=== PATIENT | male | born 1985 | race Caucasian/White ===

== ENCOUNTER 2024-12-12 06:50 | Outpatient (REF) | payer BC, SELFPAY ==
[2024-12-12 07:01] LABS: MANUAL DIFF FLAG NO
[2024-12-12 07:42] LABS: Basophils Percent Auto 0.6 % (0-2); Eosinophils Absolute Auto 0.1 X10*3/uL (0.0-0.4); Eosinophils Percent Auto 0.8 % (0-4); Hematocrit 44.6 % (42.0-52.0); Hemoglobin 15.2 g/dl (14.0-18.0); Imm Gran Abs Auto 0.02 X10*3/uL (0.00-0.03); Imm Gran Pct Auto 0.3 % (0.0-0.4); Lymphocytes Absolute Auto 2.2 X10*3/uL (1.2-4.9); Lymphocytes Percent Auto 33.6 % (20-40); Mean Corpuscular HGB Conc 34.1 g/dl (31.0-36.0); Mean Corpuscular Hemoglobin 30.3 pg (27.0-33.0); Mean Corpuscular Volume 88.8 fL (80.0-98.0); Mean Platelet Volume 9.9 fL (9.4-12.4); Monocytes Absolute Auto 0.7 X10*3/uL (0.1-1.2); Monocytes Percent Auto 10.7 % (2-11); Neutrophils Absolute Auto 3.5 x10*3/uL (2.0-8.3); Platelet Count 228 X10*3/uL (160-400); Red Blood Count 5.02 X10*6/uL (4.60-5.80); Red Cell Distribution Width 11.7 % (11.0-16.0); White Blood Count 6.5 X10*3/uL (4.8-10.8)
[2024-12-12 08:26] LABS: Alanine Aminotransferase 29 U/L (0-40); Albumin Level 4.5 g/dL (3.5-5.0); Alkaline Phosphatase 52 U/L (39-117); Anion Gap 10 (12-20); Aspartate Amino Transferase 25 U/L (5-37); Bilirubin Total 0.6 mg/dL (0.0-1.0); Blood Urea Nitrogen 20 mg/dL (9-16); Calcium 9.3 mg/dL (8.4-10.2); Carbon Dioxide 27 mmol/L (22-29); Chloride 109 mmol/L (96-108); Cholesterol 229 mg/dL (<200); Estimated Glomerular Filt Rate > 60; Glucose Fasting 79 mg/dL (60-99); HDL Cholesterol 55 mg/dL (>40); LDL Cholesterol Calculated 160 mg/dL (<100); Potassium 3.6 mmol/L (3.3-5.1); Sodium 142 mmol/L (135-145); Total Protein 6.9 g/dL (6.5-8.0); Triglycerides 74 mg/dL (<150)
== END 2024-12-12 06:51 | disposition home or self-care (01) ==
LOC: HO.LAB 06:50
PROVIDERS: Visit Provider Internal Medicine
DX: Z00.00 Encounter for general adult medical examination without abnormal findings (principal)
CPT/HCPCS: 36415; 80053; 80061; 85025

== ENCOUNTER 2024-12-29 13:15 | Outpatient (AMB) | payer OTHER, SELFPAY ==
--- NOTE | 2024-12-29 13:26 | MHC.PC.OV ---
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 Father No problems noted. Social History Housing: Condominium Patient Tobacco Use Status: Never used Tobacco e-Cigarette/Vaping Use: Never Used service: No Current occupational status: employed Cognitive needs: No Hearing needs: No Vision needs: No Questionnaire PHQ-9 Over the last 2 weeks, how often have you been bothered by any of the following problems? 1. Little interest or pleasure in doing things: not at all 2. Feeling down, depressed, or hopeless: not at all 3. Trouble falling or staying asleep, or sleeping too much: not at all 4. Feeling tired or having little energy: not at all 5. Poor appetite or overeating: not at all 6. Feeling bad about yourself - or that you are a failure or have let yourself or your family down: not at all 7. Trouble concentrating on things, such as reading the newspaper or watching television: not at all 8. Moving or speaking so slowly that other people could have noticed. Or the opposite - being so fidgety or restless that you have been moving around a lot more than usual: not at all 9. Thoughts that you would be better off or of hurting yourself in some way: not at all Total score: 0 Source: Developed by Meliton Winstonet B.W. Toni, Iain Ren and colleagues, with an educational asad from [employer]. Thrive Questionnaire Date Thrive assessed: 12/29/24 I am a: Patient Within the past 12 months, did the food you bought not last and you didn't have the money to get more?: Never true Within the past 12 months, did you worry whether your food would run out before you got money to buy more?: Never true Do you have trouble paying for medicines?: No Do you have trouble getting transportation to medical appointments?: No Do you have trouble paying your heating and electricity bill?: No Do you have trouble taking care of your child, family member or friend?: No Do you have trouble with day-to-day activities such as bathing, preparing meals, shopping, managing finances, etc.?: No Are you currently unemployed and looking for a job?: No Are you interested in more education?: No THRIVE Score: 0 AUDIT C Alcohol Use Questionnaire (AUDIT-C) 1. How often do you have a drink containing alcohol?: Monthly or less 2. How many drinks containing alcohol do you have on a typical day when you are drinking?: 1 or 2 3. How often do you have six or more drinks on one occasion?: Less than monthly Total Score: 2 TOAN-7 AMB Questionnaire TOAN-7 Date TOAN - 7 assessed: 12/29/24 Feeling nervous, anxious, or on edge: 0 = Not at all Not being able to stop or control worryin = Not at all Worrying too much about different things: 0 = Not at all Trouble relaxin = Not at all Being so restless that it is hard to sit still: 0 = Not at all Becoming easily annoyed or irritable: 0 = Not at all Feeling afraid as if something awful might happen: 0 = Not at all Total TOAN-7 score (0-4 normal; 5-9 mild; 10-14 moderate; 15-21 severe): 0 Source: Developed by Drs. Hector Brewster, Rosanna Muñoz, Iain Ren and colleagues, with an educational asad from [employer]. Physical exam (Primary Care) Vital Signs: Last Vital Signs Temp 97.5 F 12/29/24 13:29 Pulse 74 12/29/24 13:29 BP 126/80 12/29/24 13:29 Pulse Ox 99 12/29/24 13:29 Oxygen Delivery Method Room Air 12/29/24 13:29 BMI result Body Mass Index 28.4 Tobacco/Smoking Status: Tobacco use Status Tobacco use date assessed 12/29/24 12/29/24 13:28 Patient Tobacco Use Status Never used Tobacco 12/29/24 13:28 e-Cigarette/Vaping Use Never Used 12/29/24 13:28 PHQ-9: PHQ-9 Score PHQ-9: Total score 0 12/29/24 13:35 Thrive Assessment: Date of Thrive Assessment Date Thrive assessed 12/29/24 12/29/24 13:28 Coding Level of Care Code New Pt Level 4 (96893) Complex EM visit Add On G2211 Diagnoses Hyperlipidemia E78.5 Assessment & Plan Assessment & Plan (1) Hyperlipidemia: Code(s): E78.5 - Hyperlipidemia, unspecified Category: Medical Plan: Statins started. Counselling on the importance of diet and exercise done. Plan History of Present Illness The patient is a 39-year-old male presenting for a routine physical examination and management of hypercholesterolemia. Recently, routine bloodwork revealed an elevated cholesterol level of 160 mg/dL, which the patient was previously unaware of. He denies any accompanying symptoms like chest pain or dyspnea. The issue was identified as part of preparatory health checks ahead of his upcoming wedding. Notable in his family history, his father suffered a myocardial infarction, and on his paternal side, he has two relatives who had aneurysms. The patient denies any use of amphetamines, which his relatives used and were connected to their aneurysms. His blood pressure measurements have been normal, and he does not exhibit signs requiring immediate aneurysm screening. 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 - Exercise: Plays soccer once a week. - Vision: Reports occasional need to squint when reading since law school. Review of Systems - Cardiovascular: Denies chest pain or dyspnea. - Neurological: Denies frequent headaches or halos around vision. - Respiratory: Denies shortness of breath. Physical Exam General: Cooperative and healthy appearing Nutritional Appearance: Well nourished Orientation/consciousness: Patient oriented x3 Limitations: No limitations Head: Normal to inspection General: Appearance normal, both eyes and all related structures Neck: Normal visual inspection Chest: Normal palpation of entire chest wall Respiratory: Normal respiratory effort Neurology: Patient oriented x3 Results - Labs: Elevated total cholesterol at 160 mg/dL. Plan The patient will initiate statin therapy to manage hypercholesterolemia, given the elevated cholesterol levels and the significant family history of cardiovascular disease. This intervention is aimed at reducing his risk for future heart disease and stroke. Comprehensive guidance on the importance of concurrently adopting dietary and physical activity modifications was provided, although the medication is expected to have the most significant impact on lowering cholesterol levels. The potential side effects, such as muscle cramps and liver enzyme alterations, were reviewed, and the necessity of regular six-month monitoring of liver function was conveyed. There is a lack of immediate need for aneurysm screening due to absence of symptoms and contributing personal risk factors. The importance of consistent medication adherence was stressed to ensure sustained benefit from the treatment. Patient was informed and verbally consented to the use of an ambient scribe for clinic note documentation during this visit. Discussion Notes I discussed with the patient the diagnosis of hypercholesterolemia and the implications due to his family history of heart disease. Medication in the form of statins was recommended and expected to be the most effective intervention in lowering his cholesterol levels, given his genetic predispositions and the current elevated measurement. I elaborated on how maintaining a low cholesterol level correlates with a reduced risk of cardiovascular events. The benefits of medication versus the possible side effects and the commitment required were thoroughly explained. The patient was informed about the necessity of regular six-month monitoring of liver function to detect any adverse impact from statin use. Family history inquiry led to the understanding that immediate aneurysm screening is not currently needed. Future follow-ups will track his response to treatment and adherence to lifestyle modifications. Patient Instructions - Begin taking prescribed cholesterol medication daily. - Maintain a diet low in saturated fats and cholesterol. - Engage in regular physical exercise as discussed. - Monitor for any muscle pain or cramps and report these side effects. - Return for blood tests every six months to monitor liver function. - Follow medication adherence strictly to manage cholesterol effectively. - Return if any new symptoms arise or further consultation is desired.
[2024-12-29 13:29] VITALS: BP 126/80; PULSE 74; TEMP 36.4; O2SAT 99; BMI 28.4
== END 2024-12-29 13:51 | disposition home or self-care (01) ==
LOC: HO.HMCHD 13:16
PROVIDERS: PCP Internal Medicine; Visit Provider Internal Medicine
DX: E78.5 Hyperlipidemia, unspecified (principal)

== ENCOUNTER → 2024-12-29 13:15 | Outpatient (BNVA) | payer BC, SELFPAY | PROVIDERS: PCP Internal Medicine; Visit Provider Internal Medicine | DX: Z13.89 Encounter for screening for other disorder (principal) ==

== ENCOUNTER 2025-06-29 15:16 | Outpatient (AMB) | payer BC, SELFPAY ==
--- OUTSIDE RECORDS SUMMARY | 2021-10-01 12:24 | XMS_ITS | Encounter Summary ---
Author Organization [facility] Address [address] [facility] [address] [place] [id number] Phone Care Team Providers Care Stain Dipper Name Role Phone Adiyta Harper MD Primary Care Provider Encounter Details Date Type Department Care Team (Late st Contact Info) Description 10/01/2021 11:24 AM EST Hospital Encounter [facility] [address] [place] [address] Judy Davenport CNP [address] [place] [address] [email or web address] Social History Tobacco Use Types Packs/Day Years Used Date Smoking Tobacco: Former Smokeless Tobacco: Never Education Answer Date Recorded Are you interested in more education? Not on jessy e 01/05/2023 Are you concerned about learning? Not on file 01/05/2023 No 01/05/2023 No 01/05/2023 Digital Access Answer Date Recorded No 02/05/2023 No 02/05/2023 Reliable internet access at home? Not on file 02/05/2023 Device with a working camera? Not on file Sex and Gender Information Value Date Recorded Sex Assigned at Not on file Legal Sex Male 12:32 AM EST Gender Identity Not on file Sexual Orientation Not on file documented as of this encounter Plan of Treatment Not on file documented as of this encounter Procedures Procedure Name Priority Date/Time Associated Diagnosis Comments XR HAND 3 OR MORE VIEWS (LEFT) Urgent/patient waiting 10/01/2021 11:30 AM EST Left hand pain documented in this encounter Results * XR HAND 3 OR MORE VIEWS (LEFT) (10/01/2021 11:30 AM EST) Anatomical Region Laterality Modality Hand Left Computed Radiogr aphy 10/01/2021 11:3 3 AM EST Impressions 10/01/2021 11:34 AM EST Boxer's fracture. Narrative 10/01/2021 11:34 AM EST XR HAND 3 OR MORE VIEWS (LEFT) COMPARISON: None FINDINGS: There is an oblique fracture of the fifth metacarpal diaphysis with one quarter shaft width of radial displacement of the distal fracture fragment. No dislocation. Procedure Note Regulo Levy, DO - 10/01/2021 XR HAND 3 OR MORE VIEWS (LEFT) COMPARISON: None FINDINGS: There is an oblique fracture of the fifth metacarpal diaphysis with onequarter shaft width of radial displacement of the distal fracturefragment. No dislocation. IMPRESSION: Boxer's fracture. us Judy Davenport FIRE EATER IMG XR UPPER EXTREMITY Claire l Result documented in this encounter Visit Diagnoses Not on filedocumented in this encounter Care Teams Stain Dipper Relationship Specialty Start Date End Date Aditya Harper MD [address] [place] [address] [place] [id number] PCP - General Internal Medicine 10/01/21 documented as of this encounter Additional Source Comments The information contained in this document represents components of the legal health record. It is not the complete legal health record.[facility]
--- NOTE | 2025-06-29 14:01 | A.OFFPC_ITS ---
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 Hyperlipidemia-on atorvastatin 10 mg nightly. Last LDL 160. No chest pain, shortness of breath, lightheadedness, palpitations, headaches. Blood pressure initially elevated but improved on recheck to 126/70. ROS: see hpi EXAM: Constitutional - Awake and Alert, No apparent distress Eyes - PERRL Cardiovascular - S1S2, RRR, No edema Respiratory - Normal lung expansion, Normal respiratory effort, No respiratory distress, CTA bilaterally Extremities - no calf tenderness bilaterally, no swelling Skin - Warm/Dry Neurological - Alert & oriented x3 Psychological - Appropriate affect PFSH Medical History (Updated 06/29/25 @ 17:23 by ROSA ISELA Luna) FH: NH in first degree male relative Hyperlipidemia Family History (Updated 12/29/24 @ 13:34 by Shanice Villatoro MA) Mother No problems noted. Father No problems noted. Social History Housing: Condominium Patient Tobacco Use Status: Never used Tobacco e-Cigarette/Vaping Use: Never Used service: No Current occupational status: employed Current occupation: [employer] Cognitive needs: No Hearing needs: No Vision needs: No Questionnaire PHQ-9 Over the last 2 weeks, how often have you been bothered by any of the following problems? 1. Little interest or pleasure in doing things: not at all 2. Feeling down, depressed, or hopeless: not at all 3. Trouble falling or staying asleep, or sleeping too much: not at all 4. Feeling tired or having little energy: not at all 5. Poor appetite or overeating: several days 6. Feeling bad about yourself - or that you are a failure or have let yourself or your family down: not at all 7. Trouble concentrating on things, such as reading the newspaper or watching t ele[employer]: not at all 8. Moving or speaking so slowly that other people could have noticed. Or the opposite - being so fidgety or restless that you have been moving around a lot more than usual: not at all 9. Thoughts that you would be better off or of hurting yourself in some way: not at all Total score: 1 Source: Developed by Drs. Hector Brewster, Rosanna Muñoz, Iain Ren and colleagues, with an educational asad from [employer]. Thrive Questionnaire Date Thrive assessed: 06/29/25 I am a: Patient What is your living situation today?: I have a steady place to live Within the past 12 months, did the food you bought not last and you didn't have the money to get more?: Never true Within the past 12 months, did you worry whether your food would run out before you got money to buy more?: Never true Do you have trouble paying for medicines?: No Do you have trouble getting transportation to medical appointments?: No Do you have trouble paying your heating and electricity bill?: No Do you have trouble taking care of your child, family member or friend?: No Do you have trouble with day-to-day activities such as bathing, preparing meals, shopping, managing finances, etc.?: No Are you currently unemployed and looking for a job?: No Are you interested in more education?: No THRIVE Score: 0 TOAN-7 AMB Questionnaire TOAN-7 Date TOAN - 7 assessed: 06/29/25 Feeling nervous, anxious, or on edge: 0 = Not at all Not being able to stop or control worryin = Not at all Worrying too much about different things: 0 = Not at all Trouble relaxin = Not at all Being so restless that it is hard to sit still: 0 = Not at all Becoming easily annoyed or irritable: 0 = Not at all Feeling afraid as if something awful might happen: 0 = Not at all Total TOAN-7 score (0-4 normal; 5-9 mild; 10-14 moderate; 15-21 severe): 0 Source: Developed by Drs. Hector Brewster, Rosanna Muñoz, Iain Ren and colleagues, with an educational asad from [employer]. Physical exam (Primary Care) Vital Signs: Last Vital Signs Temp 97.6 F 06/29/25 15:21 Pulse 76 06/29/25 15:21 Resp 18 06/29/25 15:21 BP 146/90 H 06/29/25 15:21 Pulse Ox 98 06/29/25 15:21 Oxygen Delivery Method Room Air 06/29/25 15:21 BMI result Body Mass Index 28.8 Tobacco/Smoking Status: Tobacco use Status Tobacco use date assessed 12/29/24 06/29/25 14:02 Patient Tobacco Use Status Never used Tobacco 06/29/25 14:02 e-Cigarette/Vaping Use Never Used 06/29/25 14:02 PHQ-9: PHQ-9 Score PHQ-9: Total score 1 06/29/25 15:51 Thrive Assessment: Date of Thrive Assessment Date Thrive assessed 06/29/25 06/29/25 15:29 Coding Level of Care Code Est Pt Level 3 (23609) Complex EM visit Add On G2211 Diagnoses Hyperlipidemia E78.5 Assessment & Plan Assessment & Plan (1) Hyperlipidemia: Code(s): E78.5 - Hyperlipidemia, unspecified Category: Medical Plan: Lipid panel and liver panel ordered. Continue atorvastatin 10 mg daily. Diet low in saturated fats and highly processed foods. Regular exercise Plan Follow-up in the office in 6 months for annual physical exam Orders: Orders Lipid Panel Today E78.5 - Hyperlipidemia, unspecified Liver Panel Today E78.5 - Hyperlipidemia, unspecified
[2025-06-29 15:21] VITALS: BP 146/90; PULSE 76; RESP 18; TEMP 36.4; O2SAT 98; BMI 28.8
[2025-06-29 17:22] VITALS: BP 126/70
--- OUTSIDE RECORDS SUMMARY | 2025-06-29 19:29 | XMS_ITS | Clinical Summary ---
Author Organization [facility] Address [address] [place] [address] Phone Care Team Providers Care Digital Media Director Name Role Phone Aditya Harper MD Primary Care Provider Allergies No known active allergies Medications No known medications Active Problems No known active problems Immunizations No known immunizations Social History Tobacco Use Types Packs/Day Years Used Date Smoking Tobacco: Former Smokeless Tobacco: Never Tobacco Cessation:Counseling Given: Not Answered Education Answer Date Recorded Are you interested [...] on file Sexual Orientation Not on file Last Filed Vital Signs Vital Sign Reading Time Taken Comments Blood Pressure 142/91 08/12/2023 1:09 PM EST Pulse 97 08/12/2023 1:09 PM EST Temperature 36.6 C (97.9 F) 08/12/2023 1:09 PM EST Respiratory Rate 16 08/12/2023 1:09 PM EST Oxygen Saturation 97% 08/12/2023 1:09 PM EST Inhaled Oxygen Concentration - - Weight 74.8 kg (165 lb) 08/12/2023 1:09 PM EST Height 172.7 cm (5' 8 ) 08/12/2023 1:09 PM EST Body Mass Index 25.09 08/12/2023 1:09 PM EST Plan of Treatment Health Maintenance Due Date Last Done Comments Adult Td,Tdap Booster 1986 LIPID PANEL 1986 DEPRESSION SCREENING 1998 SMOKING Hx and SMOKELESS TOBACCO SCREENING 1999 HEPATITIS C SCREENING 2004 HIV ONE-TIME SCREENING (18-6 5 YEARS) 2004 SCREENING FOR DIABETES 2021 INFLUENZA VACCINE (#1) 2025 , 09/24/2019, 06/06/2018 COVID-19 VACCINE (2024-2 6 season) 2025 07/27/2021, 01/28/2021, 12/31/2020 HEPATITIS A VACCINES Aged Out No long er eligible based on patient's age to complete this topic HIB VACCINES Aged Out No longer eligi ble based on patient's age to complete this topic MENINGOCOCCAL VACCINES (ACWY) Aged Out No longer eligible based on patient's age to complete this topic MENINGOCOCCAL VACCINES (B) Aged Out N o longer eligible based on patient's age to complete this topic PNEUMOCOCCAL VACCINES (0-49 years) Aged Out No longer eligible b ased on patient's age to complete this topic Medical Devices Not on file Insurance [address] [place], [place] [address] [place], [place] [address] [place] [place] [address] [place], [place] [address]O O [facility] Address: [address] [address] Care Teams Digital Media Director Relationship Specialty Start Date End Date Aditya Harper MD [address] [place] [address] [place] [address] PCP - General Internal Medicine 10/01/21 Additional Source Comments The information contained in this document represents components of the legal health record. It is not the complete legal health record.[facility]
== END 2025-06-29 15:57 | disposition home or self-care (01) ==
PROVIDERS: PCP Physician Assistant; Visit Provider Physician Assistant
DX: E78.5 Hyperlipidemia, unspecified (principal)